=== PATIENT | male | born 2000 | race Caucasian/White ===

== ENCOUNTER 2022-01-24 04:29 | Emergency (ER) | payer SELFPAY ==
[~2022-01-24] VITALS: Ht 167.6 cm; Wt 79.0 kg
[2022-01-24 04:36] VITALS: BP 121/71
== END 2022-01-24 05:40 | disposition home or self-care (01) ==
LOC: ER 04:44
DX: T40.0X1A Poisoning by opium, accidental (unintentional), initial encounter (principal); X58.XXXA Exposure to other specified factors, initial encounter
CPT/HCPCS: 99283